=== PATIENT | male | born 1945 | race African-American/Black ===

== ENCOUNTER 2017-10-04 08:02 | Emergency (ER) | payer OTHER ==
[~2017-10-04] VITALS: Ht 180.3 cm; Wt 110.0 kg
[2017-10-04] MEDS ORDERED: ATOR10TA PO (08:08)
[2017-10-04] MEDS ORDERED: HYDR12.529 PO (08:08)
[2017-10-04] MEDS: NALOXONE HCL 1 MG/ML 2ML VIAL IV ONE (08:30)
[2017-10-04 09:08] LABS: BASOPHILS % 0.5 % (0.0-2.0); EOSINOPHILS % 3.2 % (0.0-5.0); HEMATOCRIT. 42.4 % (42.0-52.0); HEMOGLOBIN. 13.9 g/dL (14.0-18.0); LYMPHOCYTES % 37.1 % (20.0-50.0); MEAN CORPUSCULAR HEMOGLOBIN 29.7 pg (28.0-32.0); MEAN CORPUSCULAR VOLUME 90.6 fL (80.0-94.0); MEAN PLATELET VOLUME 9.3 fl (7.4-10.4); MONOCYTES % 5.6 % (2.0-8.0); NEUTROPHILS % 53.6 % (40.0-76.0); PLATELET 266 x1000/uL (130-400); RED BLOOD CELL COUNT 4.68 mill/uL (4.7-6.1); RED CELL DISTRIBUTION WIDTH 14.4 % (11.6-14.6)
[2017-10-04 09:15] LABS: CHLORIDE 101 mEq/L (98-107); PARTIAL THROMBOPLASTIN TIME 24.9 sec (23.4-31.0); PROTHROMBIN TIME 10.7 sec (9.4-11.6)
[2017-10-04 09:21] LABS: ETHANOL BLOOD < 10 mg/dL
[2017-10-04 09:24] LABS: AMMONIA 27 uMol/L (<32)
[2017-10-04 09:29] LABS: BG BASE EXCESS 1.3 mmol/L (-2.0-2.0); BG CARBOXYHEMOGLOBIN 0.8 % (0.5-1.5); BG DEOXYHEMOGLOBIN 2.9 % (0.0-5.0); BG FRACTION INSPIRED OXYGEN 21; BG HCO3 ACT 23.8 mmol/L (22.0-26.0); BG METHEMOGLOBIN 0.2 % (0.0-1.5); BG OXYGEN SATURATION 97.1 % (92.0-98.5); BG OXYHEMOGLOBIN 96.1 % (94.0-97.0); BG PCO2 31.8 mmHg (35.0-45.0); BG PH 7.492 (7.350-7.450); BG PO2 89.5 mmHg (75.0-100.0); BG SAMPLE SITE LEFT BRACHIAL; BG TOTAL HEMOGLOBIN 14.7 g/dL (12.0-18.0); BG VENT MODE ROOM AIR
[2017-10-04] MEDS: SODIUM CHLORIDE 0.9% 500 ML IV ONE (09:44)
[2017-10-04 10:06] LABS: CLARITY URINE CLEAR (CLEAR); COLOR URINE YELLOW (YELLOW); KETONES URINE NEGATIVE (NEGATIVE); LEUKOCYTE ESTERASE URINE NEGATIVE (NEGATIVE); NITRITE URINE NEGATIVE (NEGATIVE); OCCULT BLOOD URINE 2+ (NEGATIVE); PROTEIN URINE 1+ (NEGATIVE); SPECIFIC GRAVITY URINE 1.021 (1.005-1.030)
[2017-10-04 10:28] LABS: *AMPHETAMINES SCREEN URINE NEGATIVE (NEGATIVE); *BARBITURATES SCREEN URINE NEGATIVE (NEGATIVE); *BENZODIAZEPINES SCREEN URINE NEGATIVE (NEGATIVE); *COCAINE SCREEN URINE NEGATIVE (NEGATIVE); CANNABINOID URINE SCREEN NEGATIVE (NEGATIVE); METHADONE URINE SCREEN NEGATIVE (NEGATIVE); OPIATES URINE SCREEN NEGATIVE (NEGATIVE); PHENCYCLIDINE URINE SCREEN NEGATIVE (NEGATIVE)
[2017-10-04] MEDS: PIPERACILLIN/TAZ 3.375G PREMIX 50 ML IV ONE (11:00)
[2017-10-04] MEDS: SODIUM CHLORIDE 0.9% 1,000 ML IV ONE (11:31)
[2017-10-04] MEDS: VANCOMYCIN 1 G PREMIX 200 ML IV SCH (11:58)
[2017-10-04] MEDS: ASPIRIN 81MG TABLET PO ONE (12:03)
[2017-10-04] MEDS ORDERED: ASPIRIN 81MG TABLET ONE (12:09)
[2017-10-04 12:50] VITALS: BP 130/60
== END 2017-10-04 12:48 | disposition short-term general hospital (02) ==
LOC: ER 08:02 → EDBEDREQSVC 08:21 → EDBEDREQ 08:21 → ER 12:48 → CANBEDREQ 14:35
DX: G93.40 Encephalopathy, unspecified (principal); E87.2 Acidosis; E66.9 Obesity, unspecified; E78.00 Pure hypercholesterolemia, unspecified; G47.30 Sleep apnea, unspecified; I10 Essential (primary) hypertension; R79.1 Abnormal coagulation profile
CPT/HCPCS: 36415; 36600; 70450; 71045; 80053; 80305; 81003; 82140; 82375; 82805; 83605; 83690; 83880; 84484; 85025; 85610; 85730; 87040; 87086; 93005; 96361; 96365; 96367; 99291; G0482; J2543; J3370; J7030; J7040

== ENCOUNTER 2022-12-20 08:35 | Emergency (ER) | payer MEDICARE, OTHER ==
[~2022-12-20] VITALS: Ht 182.9 cm; Wt 100.0 kg
[~2022-12-20 08:35] MED LIST: ATOR10TA PO; HYDR12.529 PO
[2022-12-20 09:32] LABS: BASOPHILS % 0.6 % (0.0-2.0); HEMATOCRIT. 41.9 % (42.0-52.0); HEMOGLOBIN. 13.8 g/dL (14.0-18.0); LYMPHOCYTES % 27.1 % (20.0-50.0); MEAN CORPUSCULAR HEMOGLOBIN 29.8 pg (28.0-32.0); MEAN CORPUSCULAR VOLUME 90.6 fL (80.0-94.0); MONOCYTES % 7.2 % (2.0-8.0); NEUTROPHILS % 63.1 % (40.0-76.0); PLATELET 203 x1000/uL (130-400); RED BLOOD CELL COUNT 4.62 mill/uL (4.7-6.1); RED CELL DISTRIBUTION WIDTH 14.4 % (11.6-14.6)
[2022-12-20 09:40] LABS: CHLORIDE 102 mEq/L (98-107)
[2022-12-20 09:53] LABS: ETHANOL BLOOD < 10 mg/dL
[2022-12-20 11:26] LABS: CLARITY URINE CLEAR (CLEAR); COLOR URINE YELLOW (YELLOW); KETONES URINE NEGATIVE (NEGATIVE); LEUKOCYTE ESTERASE URINE NEGATIVE (NEGATIVE); NITRITE URINE NEGATIVE (NEGATIVE); OCCULT BLOOD URINE 1+ (NEGATIVE); PH URINE 6.5 (4.5-8.0); PROTEIN URINE TRACE (NEGATIVE); SPECIFIC GRAVITY URINE 1.012 (1.005-1.030)
[2022-12-20 12:02] LABS: *AMPHETAMINES SCREEN URINE NEGATIVE (NEGATIVE); *BARBITURATES SCREEN URINE NEGATIVE (NEGATIVE); *BENZODIAZEPINES SCREEN URINE NEGATIVE (NEGATIVE); *COCAINE SCREEN URINE NEGATIVE (NEGATIVE); CANNABINOID URINE SCREEN NEGATIVE (NEGATIVE); METHADONE URINE SCREEN NEGATIVE (NEGATIVE); OPIATES URINE SCREEN NEGATIVE (NEGATIVE); PHENCYCLIDINE URINE SCREEN NEGATIVE (NEGATIVE)
[2022-12-20] MEDS ORDERED: KEPP500 MT (12:19)
[2022-12-20] MEDS ORDERED: LEVETIRACETAM 500MG TABLET PO ONE (12:30)
[2022-12-20 12:45] VITALS: BP 155/74
== END 2022-12-20 12:47 | disposition home or self-care (01) ==
LOC: ER 08:35
DX: G40.909 Epilepsy, unspecified, not intractable, without status epilepticus (principal); I10 Essential (primary) hypertension; E78.00 Pure hypercholesterolemia, unspecified; Z91.148 Patient's other noncompliance with medication regimen for other reason
CPT/HCPCS: 36415; 71045; 80053; 80305; 80320; 81003; 85025; 99285; G0480

== ENCOUNTER 2023-08-02 13:45 | Emergency (ER) | payer OTHER ==
[~2023-08-02] VITALS: Ht 177.8 cm; Wt 109.0 kg
[~2023-08-02 13:45] MED LIST changes: +KEPP500 MT
[2023-08-02 13:52] VITALS: TEMP 98.6; O2SAT 97
[2023-08-02 14:45] LABS: EOSINOPHILS % 1.2 % (0.0-5.0); HEMATOCRIT. 39.4 % (42.0-52.0); HEMOGLOBIN. 12.6 g/dL (14.0-18.0); LYMPHOCYTES % 31.5 % (20.0-50.0); MEAN CORPUSCULAR HEMOGLOBIN 29.9 pg (28.0-32.0); MEAN CORPUSCULAR HGB CONC 31.9 g/dL (31.0-37.0); MEAN CORPUSCULAR VOLUME 93.8 fL (80.0-94.0); MEAN PLATELET VOLUME 9.6 fl (7.4-10.4); MONOCYTES % 6.6 % (2.0-8.0); NEUTROPHILS % 59.7 % (40.0-76.0); PLATELET 221 x1000/uL (130-400); RED CELL DISTRIBUTION WIDTH 14.5 % (11.6-14.6); WHITE BLOOD COUNT 5.8 x1000/uL (4.5-11.0)
[2023-08-02 15:17] LABS: ALANINE AMINOTRANSFERASE 9 IU/L (10-49); ALBUMIN 4.1 g/dL (3.2-4.8); ASPARTATE AMINOTRANSFERASE 12 IU/L (<34); BILIRUBIN TOTAL 0.5 mg/dL (0.1-1.0); CALCIUM 9.2 mg/dL (8.7-10.4); CARBON DIOXIDE 30 mEq/L (21-32); CHLORIDE 105 mEq/L (98-107); CREATININE 0.9 mg/dL (0.6-1.3); GLUCOSE 95 mg/dL (70-105); PROTEIN TOTAL 8.6 g/dL (6.0-8.3); SODIUM 141 mEq/L (136-145); UREA NITROGEN BLOOD 7 mg/dL (9-23)
[2023-08-02 15:22] LABS: LACTIC ACID 2.6 mmol/L (0.4-2.0)
[2023-08-02 17:30] VITALS: BP 146/84; PULSE 91; RESP 16
== END 2023-08-02 19:36 | disposition home or self-care (01) ==
LOC: ER 13:45
DX: G40.89 Other seizures (principal); E78.00 Pure hypercholesterolemia, unspecified; I10 Essential (primary) hypertension
CPT/HCPCS: 36415; 80053; 83605; 85025; 93005; 99284